=== PATIENT | male | born 2000 | race African-American/Black ===

== ENCOUNTER 2018-05-01 20:15 | Emergency (ER) | payer OTHER ==
--- NOTE | 2018-05-01 20:30 | UC ---
Complaint Male HPI - HPI Summary HPI Summary: 17 yo male presents with exposure to chlamydia. He tells me that his partner of the last 1.5months was dx'd with chlamydia today and he is here requesting testing and treatment. He mentions that in early February he had unprotected intercourse with a new partner and then got tested about a week later for GC/C and blood STD testing - all were negative per pt. He then began to have intercourse with a new partner and says he has remained monogamous with her over the last 1.5 months. He is having no dysuria, penile drainage, or testicular pain. - History of Current Complaint Stated Complaint: PERSONAL Time Seen by Provider: 05/01/18 20:29 Hx Obtained From: Patient Severity Currently: None - Allergies/Home Medications Allergies/Adverse Reactions: Allergies Allergy/AdvReac Type Severity Reaction Status Date / Time No Known Allergies Allergy Verified 05/01/18 20:37 Home Medications: Home Medications NK [No Home Medications Reported] 05/01/18 [History Confirmed 05/01/18] PMH/Surg Hx/FS Hx/Imm Hx - Additional Past Medical History Additional PMH: None - Surgical History Surgical History: None - Family History Known Family History: Positive: None - Social History Occupation: Student Lives: With Family Alcohol Use: None Substance Use Type: None Smoking Status (MU): Never Smoked Tobacco Review of Systems Constitutional: Negative Skin: Negative Respiratory: Negative Cardiovascular: Negative Gastrointestinal: Negative Genitourinary: Negative Neurovascular: Negative Neurological: Negative Psychological: Negative All Other Systems Reviewed And Are Negative: Yes Physical Exam - Summary Physical Exam Summary: GENERAL: NAD. WDWN. No pain distress. SKIN: No rashes, sores, lesions, or open wounds. NECK: Supple. Nontender. No lymphadenopathy. CHEST: CTAB. No r/r/w. No accessory muscle use. Breathing comfortably and in no distress. CV: RRR. Without m/r/g. Pulses intact. Cap refill <2seconds ABDOMEN: Soft. NTTP. No distention or guarding. Bowel sounds present NEURO: Alert. PSYCH: Age appropriate behavior. Triage Information Reviewed: Yes Vital Signs: Vital Signs: Temp Pulse Resp BP Pulse Ox 98.7 F 78 15 124/78 98 05/01/18 20:38 05/01/18 20:38 05/01/18 20:38 05/01/18 20:38 05/01/18 20:38 Vital Signs Reviewed: Yes Complaint Male Course/Dx - Course Course Of Treatment: He was given 1gm Azithromycin in the clinic. Will test for GC/C via urine. He is declining further STD at this time. - Differential Dx/Diagnosis Provider Diagnoses: Exposure to chlamydia Discharge - Sign-Out/Discharge Documenting (check all that apply): Patient Departure All imaging exams completed and their final reports reviewed: No Studies - Discharge Plan Condition: Stable Disposition: HOME Patient Education Materials: Chlamydia (ED) Referrals: No Primary Care Phys,NOPCP [Primary Care Provider] - Additional Instructions: If you develop a fever, shortness of breath, chest pain, new or worsening symptoms - please call your PCP or go to the ED. 1) You were treated at your visit today. Please do not engage in sexual activity for at least ONE WEEK after today. - Billing Disposition and Condition Condition: STABLE Disposition: Home
[2018-05-01 20:42] VITALS: BP 124/78
[2018-05-01] MEDS ORDERED: Azithromycin TAB* 250 MG PO ONE (20:54)
--- NOTE | 2018-05-03 13:53 | UC ---
- Progress Note Progress Note: Pt with + Chlamydia neg Gonorrhea Pt was treated with Zithromax 1000mg Please call pt with result juan c 05/03/2018 Discharge - Sign-Out/Discharge Documenting (check all that apply): Post-Discharge Follow Up All imaging exams completed and their final reports reviewed: No Studies - Discharge Plan Condition: Stable Disposition: HOME Patient Education Materials: Chlamydia (ED) Referrals: No Primary Care Phys,NOPCP [Primary Care Provider] - Additional Instructions: If you develop a fever, shortness of breath, chest pain, new or worsening symptoms - please call your PCP or go to the ED. 1) You were treated at your visit today. Please do not engage in sexual activity for at least ONE WEEK after today. - Billing Disposition and Condition Condition: STABLE Disposition: Home
== END 2018-05-01 21:05 | disposition home or self-care (01) ==
LOC: UCCORT 20:15
DX: Z20.2 Contact with and (suspected) exposure to infections with a predominantly sexual mode of transmission (principal)
CPT/HCPCS: 87491; 87591; 99202; A9270-GY; G0463